=== PATIENT | male | born 1990 | race African-American/Black ===

== ENCOUNTER 2020-10-11 04:24 | Observation (INO) ==
[2020-10-11] MEDS ORDERED: MORPHINE 4 MG/1 ML VIAL IV STA (04:37)
[2020-10-11] MEDS ORDERED: PIPERACILLIN/TAZOBACTAM 3,375 MG in SODIUM CHLORIDE 0.9% 100 ML IV STA (04:37)
[2020-10-11] MEDS ORDERED: ONDANSETRON 4 MG/2 ML VIAL IV STA (04:37)
[2020-10-11 05:20] LABS: Basophils % 0.2 % (0.0-0.8); Eosinophils # 0.3 10*3/uL (0.0-0.87); Eosinophils % 2.1 % (0.00-10.9); Hemoglobin 15.6 GM/DL (14.0-18.0); Immature Granulocytes % 0.3 %; Immature Granulocytes Absolute 0.04 #; Lymphocytes # 2.5 10*3/uL (1.4-4.0); Mean Corpuscular HGB Conc 33.2 GM/DL (32-36); Mean Corpuscular Volume 95.5 FL (87-102); Mean Platelet Volume 10.4 FL (9.6-12.0); Monocytes % 10.3 % (1.7-12.7); Neutrophils % 68.1 % (38.7-73.9); Platelet Count 230 T/CUMM (130-400); Red Blood Count 4.92 MC/CUMM (3.8-5.5); Red Cell Distribution Width 12.7 % (9.3-17.3); White Blood Count 12.9 T/CUMM (4-12)
[2020-10-11 05:49] LABS: Bilirubin,Total 0.5 MG/DL (0.2-1.0); Calcium 9.3 MG/DL (8.5-10.1); Potassium 3.8 MMOL/L (3.5-5.1); Total Protein 8.2 G/DL (6.4-8.2)
[2020-10-11] MEDS ORDERED: ONDANSETRON 4 MG/2 ML VIAL IV ONE (08:32)
[2020-10-11] MEDS ORDERED: HYDROmorphone 2 MG/1 ML VIAL IV ONE (08:32)
[2020-10-11] MEDS ORDERED: HYDROmorphone 2 MG/1 ML VIAL IV PRN ×3 (08:34→10:42)
[2020-10-11] MEDS ORDERED: BISACODYL 5 MG TABLET PO PRN (08:34)
[2020-10-11] MEDS ORDERED: ONDANSETRON 4 MG/2 ML VIAL IV PRN ×2 (08:34→10:42)
[2020-10-11] MEDS ORDERED: ACETAMINOPHEN 325 MG TABLET PO PRN ×2 (08:34→10:42)
[2020-10-11] MEDS ORDERED: ALBUTEROL/IPRATROPIUM 3 ML NEB RESP TX PRN (08:34)
[2020-10-11] MEDS ORDERED: KETOROLAC 15 MG/1 ML VIAL IV PRN (08:34)
[2020-10-11] MEDS ORDERED: PIPERACILLIN/TAZOBACTAM 3,375 MG in SODIUM CHLORIDE 0.9% 100 ML IV SCH (10:42)
[2020-10-11] MEDS ORDERED: SODIUM CHLORIDE 0.9% 1,000 ML IV SCH (10:42)
[2020-10-11] MEDS: LACTATED RINGERS 1,000 ML IV SCH ×3 (11:28→23:39)
[2020-10-11] MEDS ORDERED: LIDOCAINE 2% 5 ML VIAL ONE (12:32)
[2020-10-11] MEDS ORDERED: propofoL 200 MG/20 ML VIAL IV ONE (12:32)
[2020-10-11] MEDS ORDERED: MIDAZOLAM 2 MG/2 ML VIAL ONE (12:32)
[2020-10-11] MEDS ORDERED: fentaNYL 100 MCG/2 ML VIAL ONE (12:32)
[2020-10-11] MEDS ORDERED: BUPIVACAINE MPF 0.25% 30 ML VIAL ONE (12:34)
[2020-10-11] MEDS ORDERED: SEVOFLURANE 1 UNIT/15 MINUTE INH ONE (13:17)
[2020-10-11] MEDS: PIPERACILLIN/TAZOBACTAM 3,375 MG in SODIUM CHLORIDE 0.9% 100 ML IV SCH ×2 (14:51→20:36)
[2020-10-11] MEDS: PANTOPRAZOLE 40 MG TABLET PO SCH (17:29)
[2020-10-12] MEDS: PIPERACILLIN/TAZOBACTAM 3,375 MG in SODIUM CHLORIDE 0.9% 100 ML IV SCH ×2 (03:34→14:41)
[2020-10-12] MEDS: PANTOPRAZOLE 40 MG TABLET PO SCH (09:53)
[2020-10-12 16:06] VITALS: BP 137/70
== END 2020-10-12 16:46 | disposition home or self-care (01) ==
LOC: N.ED 04:24 → N.EDINP 04:24 → N.3E 10:19
PROVIDERS: ADMIT Surgery; ATTEND Surgery